=== PATIENT | female | born 1980 | race Caucasian/White ===

== ENCOUNTER 2017-04-17 05:32 | Day surgery (SDC) | payer OTHER ==
--- NOTE | 2017-04-14 13:37 | HISTORY & PHYSICAL EXAMINATION ---
DATE OF ADMISSION: CHIEF COMPLAINT: Vaginal bleeding, missed . HISTORY OF PRESENT ILLNESS: The patient is a 36-year-old white female, para 1-0-2-1 who presents with a missed . The patient had been seen in the office 2 weeks ago, had an ultrasound which revealed a missed and she was given Cytotec twice without any evidence of any passage of a fetus other than some spotting. She continues to have spotting and some mild cramps and alternatives to medical management were given. The patient is opting for a D&E at this time. PAST MEDICAL HISTORY: Positive for endometriosis in the past, HPV, hypertension in the past, kidney stone in the past, migraine in the past and dysthymic disorder. MEDICAL ALLERGIES: INCLUDE MORPHINE AND TRAMADOL. SOCIAL HISTORY: The patient is a current everyday smoker, approximately half pack per day. Denies alcohol or drugs. Currently sexually active with males. PAST SURGICAL HISTORY: Positive for laparoscopy and cystoscopy and cervical cone biopsy. MEDICATIONS: vitamins. PHYSICAL EXAMINATION: HEENT: Within normal limits. LUNGS: Clear to auscultation. COR: Regular rate and rhythm. ABDOMEN: Soft, nontender, gravid. EXTREMITIES: Mild edema. ASSESSMENT: Missed . PLAN: D&E on Thursday; type and screen is pending.
[2017-04-15 15:38] LABS: BASO % 0.2 %; BASO ABS # 0.02 K/uL (0-0.2); COMPLETE YES; EOS % 3.7 %; HEMATOCRIT 40.6 % (37-47); IG% 0.1 %; LYMPH % 24.2 %; LYMPH ABS # 2.11 K/uL (1.2-3.4); MEAN CELL VOLUME 92.5 fL (80-100); MEAN CORPUSCULAR HEMOGLOBIN 31.2 pg (25-34); MEAN CORPUSCULAR HGB CONC 33.7 g/dl (32-36); MEAN PLATELET VOLUME 9.3 fL (7.4-10.4); NEUT % 63.8 %; PLATELET COUNT 281 K/uL (130-400); RED BLOOD COUNT 4.39 M/uL (4.2-5.4); WHITE BLOOD COUNT 8.72 K/uL (4.8-10.8)
[2017-04-16 16:08] VITALS: BMI 31.0
[~2017-04-17] VITALS: Ht 157.5 cm; Wt 77.3 kg
[~2017-04-17 05:32] MED LIST: MULT-1027 PO
[2017-04-17 05:44] VITALS: BP 124/86; PULSE 71; TEMP 36.8; O2SAT 96; Ht 157.5 cm; Wt 77.3 kg
[2017-04-17 05:51] LABS: BASO % 0.3 %; BASO ABS # 0.03 K/uL (0-0.2); EOS % 1.9 %; HEMATOCRIT 41.8 % (37-47); IG% 0.1 %; LYMPH ABS # 4.84 K/uL (1.2-3.4); MEAN CELL VOLUME 93.1 fL (80-100); MEAN PLATELET VOLUME 8.9 fL (7.4-10.4); MONO % 6.6 %; NEUT % 50.1 %; PLATELET COUNT 290 K/uL (130-400); RED BLOOD COUNT 4.49 M/uL (4.2-5.4)
[2017-04-17] MEDS ORDERED: LACTATED RINGER'S 1000ML 1,000 ML IV SCH (06:00)
[2017-04-17] MEDS: LACTATED RINGER'S 1000ML 1,000 ML IV SCH ×2 (06:08→09:14)
[2017-04-17 06:09] LABS: COMPLETE YES; MEAN CORPUSCULAR HGB CONC 33.3 g/dl (32-36)
[2017-04-17] MEDS ORDERED: LIDOCAINE HCL 2% 2 ML VIAL (20MG/ML) ONE ×2 (06:21→06:22)
[2017-04-17] MEDS ORDERED: FENTANYL CITRATE INJ 50 MCG/1 ML 2 ML VIAL ONE (06:21)
[2017-04-17] MEDS ORDERED: MIDAZOLAM HCL 1 MG/ML 2ML VIAL ONE (06:21)
[2017-04-17] MEDS ORDERED: PROPOFOL IV EMULSION 10 MG/ML 20 ML VIAL IV ONE (06:22)
[2017-04-17] MEDS ORDERED: ATROPINE SULFATE 0.1 MG/ML 5ML SYR IV PRN (06:45)
[2017-04-17] MEDS ORDERED: ONDANSETRON INJ 2 MG/ML 2 ML VIAL IV PRN ×2 (06:45→08:00)
[2017-04-17] MEDS ORDERED: HYDROmorphone INJ 1 MG/ML SYR IV PRN (06:45)
[2017-04-17] MEDS ORDERED: PROMETHAZINE HCL INJ 12.5 MG in SODIUM CHLORIDE 0.9% 50ML 50 ML IV PRN (06:45)
[2017-04-17] MEDS ORDERED: EpHEDrine SULFATE INJ 50 MG/ML AMP IV PRN (06:45)
[2017-04-17] MEDS ORDERED: METHYLERGONOVINE MALEATE 0.2 MG/ML AMP ONE (06:51)
[2017-04-17] MEDS ORDERED: FERRIC SUBSULFATE 8 GM VIAL TOP SCH (07:00)
[2017-04-17] MEDS ORDERED: MISOPROSTOL 200 MCG TAB PO SCH (07:00)
--- NOTE | 2017-04-17 07:02 | History & Physical Bridge Note ---
H&P Re-Evaluation Bridge Note: I have examined the patient, reviewed the History & Physical and in the interval since the performance of the History & Physical I have noted the following changes of clinical significance: No changes noted
[2017-04-17] MEDS ORDERED: ONDANSETRON INJ 2 MG/ML 2 ML VIAL ONE (07:30)
[2017-04-17] MEDS ORDERED: DEXAMETHASONE SOD INJ 4 MG/ML VIAL ONE ×2 (07:30)
[2017-04-17] MEDS ORDERED: OXYTOCIN INJ 10 UNITS/ML VIAL ONE ×2 (07:38)
--- NOTE | 2017-04-17 07:50 | [facility] Post Operative Brief Note ---
Immediate Operative Summary Operative Date Apr 17, 2017. Pre-Operative Diagnosis Incomplete spontaneous Post-Operative Diagnosis Incomplete spontaneous Procedure(s) Performed EUA, Suction, Dilation and Curettage Surgeon Dr. Oneill Hotbed Lever Operator Surgeon(s) None Estimated Blood Loss 20 ml Findings AV 8 week size uterus BELT POLISHER adnexa Specimens Permanent: A. Products of Conception Anesthesia GETA Complication(s) None Disposition PCU
[2017-04-17] MEDS ORDERED: SODIUM CHLORIDE 0.9% 1000ML 1,000 ML IV SCH (07:55)
[2017-04-17] MEDS ORDERED: KETOROLAC TROMETHAMINE 30 MG/ML VIAL ONE (07:58)
[2017-04-17] MEDS ORDERED: KETOROLAC TROMETHAMINE 30 MG/ML VIAL IV STA (08:00)
[2017-04-17] MEDS ORDERED: IBUPROFEN 600 MG TAB PO PRN (08:00)
[2017-04-17] MEDS ORDERED: PROMETHAZINE HCL INJ 25 MG in SODIUM CHLORIDE 0.9% 50ML 50 ML IV PRN (08:00)
[2017-04-17] MEDS ORDERED: KETOROLAC TROMETHAMINE 30 MG/ML VIAL IV. PRN (08:00)
[2017-04-17] MEDS ORDERED: OXYCODONE/ACETAMINOPHEN 5-325 TAB PO PRN (08:00)
[2017-04-17] MEDS: FENTANYL CITRATE INJ 50 MCG/1 ML 2 ML VIAL IV PRN ×4 (08:03→08:26)
[2017-04-17] MEDS ORDERED: MEPERIDINE HCL 25 MG/ML CARP ONE (08:03)
[2017-04-17] MEDS ORDERED: MEPERIDINE HCL 25 MG/ML CARP IV PRN (08:15)
--- NOTE | 2017-04-17 08:16 | OPERATIVE REPORT ---
DATE OF OPERATION: 04/17/2017 PREOPERATIVE DIAGNOSIS: The patient is a 36-year-old 4, para 1-0-2-1 with incomplete spontaneous which has not responded to medical therapy and retained products of conception. POSTOPERATIVE DIAGNOSIS: Same. PROCEDURE: Examination under anesthesia, suction dilatation and curettage. SURGEON: Ilya Oneill MD TELEMARKETING SUPERVISOR: none ESTIMATED BLOOD LOSS: 20 mL. SPECIMENS: Products of conception. ANESTHESIA: LMA. COMPLICATIONS: None. FINDINGS: Examination under anesthesia revealed anteverted 8 weeks' size uterus, nonpalpable adnexa and stage 1 cystocele, uterine prolapse. DESCRIPTION OF PROCEDURE: The patient was taken to the operating room where anesthesia was given without difficulty. She was placed in dorsal lithotomy position and prepared and draped in usual sterile fashion. Urinary bladder was drained with a straight catheter, 100 mL of urine was obtained and examination under anesthesia was done with the above findings. Gloves were changed and a weighted speculum was placed in the patient's vagina and the bladder was retracted with Rodriguez valve and cervix was visualized, grasped with single tooth tenaculum. Cervical os was dilated with Garcia dilators. The uterus was sounded to be 8.5 cm and then #8 suction tip was introduced from the cervical os and the uterine cavity was suctioned while twisting it in a clockwise direction. Small pieces of cortez and white tissue suggesting products of conception was obtained and sent to pathology. Then suction was repeated and small amount of white tissue was coming from the tube and then with the next repeat there was no tissue coming, only a small amount of blood. Suction was ended. Then the uterine cavity was curetted with a small sharp curette until uterine cry sensation was felt in all quadrants. Those tissues were sent to pathology as well and then procedure was ended. The cervix was cleaned. There was minimal bleeding from the os. Single tooth tenaculum was removed. There was no bleeding from the tenaculum site. Bimanual exam was repeated. Uterus was firm and smaller. The 3 Cytotec tablets, each 200 mcg, were placed rectally. She tolerated the procedure well. Sponge, lap and instrument count was correct x2. She was given 2 grams of cefazolin before surgery. She was taken to recovery room in stable condition. No complications happened and I was present during whole procedure. I attest to the content of the Intraoperative Record and any orders documented therein. Any exceptions are noted below. MTDD
[2017-04-17] MEDS ORDERED: HydrALAZINE HCL 20 MG/ML VIAL ONE (08:23)
[2017-04-17] MEDS ORDERED: HydrALAZINE HCL 20 MG/ML VIAL IV. STA (08:24)
[2017-04-17 08:50] VITALS: BP 128/86; PULSE 66; TEMP 36.7; O2SAT 96
--- NOTE | 2017-04-17 08:50 | Anesthesiology Progress Note ---
Anesthesia Post Op Note Date & Time Apr 17, 2017 at 08:50 Vital Signs Pain Intensity: 4 Vital Signs Past 12 Hours Date Time Temp Pulse Resp B/P (MAP) Pulse Ox O2 Delivery O2 Flow Rate FiO2 04/17/17 08:45 65 19 130/92 95 Room Air 04/17/17 08:35 36.4 63 18 127/95 95 Room Air 04/17/17 08:25 65 21 166/110 100 Oxymask 6 04/17/17 08:15 73 30 175/133 100 Oxymask 10 04/17/17 08:05 89 31 181/111 97 Oxymask 10 04/17/17 08:01 156/117 04/17/17 07:59 36.2 98 21 100 Oxymask 10 04/17/17 05:44 36.8 71 16 124/86 (99) 96 Room Air Notes Mental Status: alert / awake / arousable, participated in evaluation Pt Amnestic to Procedure: Yes Nausea / Vomiting: adequately controlled Pain: adequately controlled Airway Patency, RR, SpO2: stable & adequate BP & HR: stable & adequate Hydration State: stable & adequate Anesthetic Complications: no major complications apparent
[2017-04-17] MEDS ORDERED: OXYC-57 PO (08:51)
--- NOTE | 2017-04-17 08:52 | Discharge Instructions ---
Discharge Instructions Date of Service Apr 17, 2017. Admission Reason for Admission: Missed Discharge Discharge Diagnosis / Problem: Suction, D&C Discharge Goals Goal(s): Routine recovery after surgery Activity Recommendations Activity Limitations: as noted below ACTIVITY RECOMMENDATIONS: * Avoid tampons, douching, hot tubs, pools, and intercourse until bleeding has stopped. * May shower as usual. * No strenuous activity for 24-48 hours. After 24-48 hours, you may do anything you feel like doing (driving and sports are okay). SPECIAL CARE INSTRUCTIONS: Special Diet: * Mild nausea may occur in the immediate post-operative period. * Take clear liquids such as tea, cola or bouillon until all nausea has subsided; you may then resume your normal diet. Special Care: * Light bleeding and vaginal spotting can last from a few days to 3-4 weeks. Call your doctor if bleeding becomes heavier than the heaviest part of your period. * Check your temperature twice a day for one week. If it goes above 100.4 degrees Fahrenheit (38.0 Celsius), notify your doctor. * Call your doctor's office for an appointment for 6 weeks after your surgery. FOLLOW-UP VISIT: Call your doctor's office for an appointment for 6 weeks after your surgery. . Current Hospital Diet Patient's current hospital diet: Discharge Diet Recommended Diet: Regular Diet Procedures Procedures Performed: EUA, Suction, Dilation and Curettage Pending Studies Studies pending at discharge: no Medical Emergencies . Who to Call and When: Medical Emergencies: If at any time you feel your situation is an emergency, please call 911 immediately. . Non-Emergent Contact Non-Emergency issues call your: Spacecraft Systems Engineer Call Non-Emergent contact if: temperature is above 100.5, your pain is not controlled, your pain is worsening, wound has increased drainage, wound has increased redness . . "Provider Documentation" section prepared by Ilya Oneill. . VTE Core Measure Inpt VTE Proph given/why not?: Treatment not indicated
[2017-04-17 09:20] VITALS: BP 124/83; PULSE 72; TEMP 36.7; O2SAT 96
[2017-04-17 09:50] VITALS: BP 136/92; PULSE 77; TEMP 36.7; O2SAT 96
== END 2017-04-17 10:10 | disposition home or self-care (01) ==
LOC: C.ACU 05:32
PROVIDERS: ATTEND Obstetrics & Gynecology
DX: O03.4 Incomplete spontaneous abortion without complication (principal); F17.200 Nicotine dependence, unspecified, uncomplicated

== ENCOUNTER 2017-08-20 16:14 | Emergency (ER) | payer OTHER ==
[~2017-08-20] VITALS: Ht 157.5 cm; Wt 66.1 kg
[~2017-08-20 16:14] MED LIST changes: +OXYC-57 PO
[2017-08-20 16:35] VITALS: TEMP 36.6; Ht 157.5 cm; Wt 66.1 kg
[2017-08-20] MEDS ORDERED: ONDANSETRON INJ 2 MG/ML 2 ML VIAL IV STA (19:19)
[2017-08-20] MEDS ORDERED: SODIUM CHLORIDE 0.9% 1000ML 1,000 ML IV STA (19:19)
[2017-08-20] MEDS ORDERED: KETOROLAC TROMETHAMINE 30 MG/ML VIAL IV STA (19:19)
[2017-08-20] MEDS ORDERED: QUET5TAB PO (20:31)
[2017-08-20] MEDS ORDERED: PARO1TAB27 PO (20:31)
[2017-08-20] MEDS ORDERED: CYCL10TA7 PO (20:31)
[2017-08-20] MEDS ORDERED: TAMS0.4C38 PO (20:31)
[2017-08-20] MEDS ORDERED: LISI-461 PO (20:31)
[2017-08-20] MEDS ORDERED: SULF800T23 PO (20:31)
[2017-08-20 20:38] LABS: BASO % 0.2 %; BASO ABS # 0.02 K/uL (0-0.2); EOS % 0.7 %; EOS ABS # 0.06 K/uL (0-0.5); HEMATOCRIT 45.6 % (37-47); HEMOGLOBIN 16.6 g/dL (12.0-16.0); IG# 0.01 K/uL (0.00-0.02); LYMPH % 46.9 %; MEAN CELL VOLUME 85.6 fL (80-100); MEAN CORPUSCULAR HEMOGLOBIN 31.1 pg (25-34); MEAN CORPUSCULAR HGB CONC 36.4 g/dl (32-36); MEAN PLATELET VOLUME 8.5 fL (7.4-10.4); MONO % 6.5 %; MONO ABS # 0.54 K/uL (0.11-0.59); NEUT % 45.6 %; NEUT ABS # 3.79 K/uL (1.4-6.5); PLATELET COUNT 286 K/uL (130-400); RED CELL DISTRIBUTION WIDTH CV 12.9 % (11.5-14.5); RED CELL DISTRIBUTION WIDTH SD 40.6 fL (36.4-46.3); WHITE BLOOD COUNT 8.32 K/uL (4.8-10.8)
[2017-08-20 20:56] LABS: ALBUMIN 4.4 gm/dl (3.4-5.0); CALCIUM 10.2 mg/dl (8.5-10.1); CREATININE 1.2 mg/dl (0.60-1.20); POTASSIUM 3.7 mmol/L (3.5-5.1)
[2017-08-20 20:59] LABS: TOTAL PROTEIN 8.5 gm/dl (6.4-8.2)
--- NOTE | 2017-08-20 21:06 | DIAGNOSTIC IMAGING REPORT ---
ABDOMEN AND PELVIS CT WITHOUT CONTRAST CT DOSE: 488.03 mGy.cm HISTORY: Hematuria. flank pain TECHNIQUE: Multiaxial CT images of the abdomen and pelvis were performed without the use of intravenous and oral contrast according to the standard department stone protocol. A dose lowering technique was utilized adhering to the principles of ALARA. COMPARISON STUDY: Abdomen and pelvis CT 09/16/2014. FINDINGS: The lung bases are clear. Mild distal bronchiectasis within the lingula, unchanged. No pneumoperitoneum. No pneumatosis. No fractures within the visualized osseous structures. The unenhanced liver, gallbladder, pancreas, spleen, and adrenal glands are unremarkable. There is a left circumaortic renal vein. No retroperitoneal lymphadenopathy. The bladder, uterus, bilateral adnexa are unremarkable. No pelvic free fluid. Suboptimal evaluation for pathology due to the lack of intravenous and oral contrast. However, there is no definite bowel wall thickening or obstruction. Normal appendix. There are 2 punctate stones within the left kidney. No right renal calculi. No ureteral calculi. No hydronephrosis. IMPRESSION: 1. Left-sided nephrolithiasis. No ureteral stones. No hydronephrosis. 2. No bowel wall thickening or obstruction. 3. Normal appendix. Electronically signed by: Connor Arboleda M.D. 08/20/2017 9:05 PM Dictated Date/Time: 08/20/2017 8:57 PM
--- NOTE | 2017-08-20 23:04 | EMERGENCY ROOM VISIT NOTE ---
History Report prepared by Racheal: Thanh Munroe Under the Supervision of: Dr. Martínez Mahajan D.O. First contact with patient: 19:15 Chief Complaint: KIDNEY STONE Stated Complaint: KIDNEY STONES, HEMATURIA, DEHYDRATION History of Present Illness The patient is a 37 year old female who presents to the Emergency Room with complaints of constant bilateral abdominal pain beginning 2 days ago. The patient states that she had a CT done two days ago, which revealed multiple kidney stones on her left side, with the largest being 2mm. She notes that she admitted herself to a drug rehab facility a week ago, and tried to pass her kidney stones without using any narcotics. She reports that she was just medically discharged from the rehab facility. The patient states that she has been bedridden for the last two days, and that she now has pain on both sides of her abdomen. She also complains of hematuria and nausea, but denies any vomiting. She notes that she has a history of hypertension and takes lisinopril. Source of History: patient Onset: 2 days ago Position: abdomen (bilateral) Timing: constant Associated Symptoms: + nausea, + urinary symptoms (hematuria), No vomiting Review of Systems See HPI for pertinent positives & negatives. A total of 10 systems reviewed and were otherwise negative. Past Medical & Surgical Medical Problems: (1) Acute hepatitis (2) Dysthymic disorder (3) Endometriosis (4) Hiatal hernia (5) History of calculus of kidney (6) Hypertension (7) PELV PERIT ENDOMETRIOSIS (8) Ureteral stone Surgical Problems: (1) History of ureter stent (2) LAP EXCISION OF LYSIS - ENDOMETRIOSIS Family History Diabetes mellitus Heart disease Social History Smoking Status: Current Every Day Smoker Alcohol Use: none Drug Use: heroin Marital Status: single Housing Status: lives with significant other Occupation Status: unemployed Current/Historical Medications Scheduled Lisinopril (Lisinopril), 10 MG PO DAILY Paroxetine (Paxil), 20 MG PO DAILY Quetiapine Fumarate (Seroquel), 50 MG PO HS Sulfa/Trimethoprim (Bactrim Ds 800MG/160MG), 1 TAB PO BID Tamsulosin Hcl (Flomax), 0.4 MG PO DAILY Scheduled PRN Cyclobenzaprine HCl (Cyclobenzaprine HCl), 10 MG PO TID PRN for Muscle Spasms Allergies Coded Allergies: Morphine (Unverified Allergy, Unknown, felt like throat was closing, 2/15/ 18) Tramadol (Verified Adverse Reaction, Unknown, dizziness, confusion, limb weakness, 08/20/17) Physical Exam Vital Signs Date Time Temp Pulse Resp B/P (MAP) Pulse Ox O2 Delivery O2 Flow Rate FiO2 08/20/17 21:16 85 16 135/86 98 Room Air 08/20/17 19:28 115 20 116/76 98 Room Air 08/20/17 16:35 36.6 128 20 124/84 98 Room Air Physical Exam CONSTITUTIONAL/VITAL SIGNS: Reviewed / noted above. GENERAL: Non-toxic in appearance. INTEGUMENTARY: Warm, dry, and [place]. HEAD: Normocephalic. EYES: without scleral icterus or trauma. ENT/OROPHARYNX: clear and moist. LYMPHADENOPATHY/NECK: Is supple without lymphadenopathy or meningismus. RESPIRATORY: Lungs clear and equal. CARDIOVASCULAR: Regular rate and rhythm. GI/ABDOMEN: Soft and nontender. No organomegaly or pulsatile mass. No rebound or guarding. Normal bowel sounds. EXTREMITIES: Warm and well perfused. BACK: Right CVA tenderness. NEUROLOGICAL: Intact without focal deficits. PSYCHIATRIC: normal affect. MUSCULOSKELETAL: Normally developed with good muscle tone. Medical Decision & Procedures ER Provider Diagnostic Interpretation: Radiology results as stated below per my review and radiologist interpretation: ABDOMEN AND PELVIS CT WITHOUT CONTRAST FINDINGS: The lung bases are clear. Mild distal bronchiectasis within the lingula, unchanged. No pneumoperitoneum. No pneumatosis. No fractures within the visualized osseous structures. The unenhanced liver, gallbladder, pancreas, spleen, and adrenal glands are unremarkable. There is a left circumaortic renal vein. No retroperitoneal lymphadenopathy. The bladder, uterus, bilateral adnexa are unremarkable. No pelvic free fluid. Suboptimal evaluation for pathology due to the lack of intravenous and oral contrast. However, there is no definite bowel wall thickening or obstruction. Normal appendix. There are 2 punctate stones within the left kidney. No right renal calculi. No ureteral calculi. No hydronephrosis. IMPRESSION: 1. Left-sided nephrolithiasis. No ureteral stones. No hydronephrosis. 2. No bowel wall thickening or obstruction. 3. Normal appendix. Electronically signed by: Connor Arboleda M.D. 08/20/2017 9:05 PM Laboratory Results 08/20/17 20:15 Red Blood Count 5.33, Mean Corpuscular Volume 85.6, Mean Corpuscular Hemoglobin 31.1, Mean Corpuscular Hemoglobin Concent 36.4, Mean Platelet Volume 8.5, Neutrophils (%) (Auto) 45.6, Lymphocytes (%) (Auto) 46.9, Monocytes (%) (Auto) 6.5, Eosinophils (%) (Auto) 0.7, Basophils (%) (Auto) 0.2, Neutrophils # (Auto) 3.79, Lymphocytes # (Auto) 3.90, Monocytes # (Auto) 0.54, Eosinophils # (Auto) 0.06, Basophils # (Auto) 0.02 08/20/17 20:15 Test 08/20/17 20:15 08/20/17 21:35 White Blood Count 8.32 K/uL (4.8-10.8) Red Blood Count 5.33 M/uL (4.2-5.4) Hemoglobin 16.6 g/dL (12.0-16.0) Hematocrit 45.6 % (37-47) Mean Corpuscular Volume 85.6 fL (80-100) Mean Corpuscular Hemoglobin 31.1 pg (25-34) Mean Corpuscular Hemoglobin Concent 36.4 g/dl (32-36) Platelet Count 286 K/uL (130-400) Mean Platelet Volume 8.5 fL (7.4-10.4) Neutrophils (%) (Auto) 45.6 % Lymphocytes (%) (Auto) 46.9 % Monocytes (%) (Auto) 6.5 % Eosinophils (%) (Auto) 0.7 % Basophils (%) (Auto) 0.2 % Neutrophils # (Auto) 3.79 K/uL (1.4-6.5) Lymphocytes # (Auto) 3.90 K/uL (1.2-3.4) Monocytes # (Auto) 0.54 K/uL (0.11-0.59) Eosinophils # (Auto) 0.06 K/uL (0-0.5) Basophils # (Auto) 0.02 K/uL (0-0.2) RDW Standard Deviation 40.6 fL (36.4-46.3) RDW Coefficient of Variation 12.9 % (11.5-14.5) Immature Granulocyte % (Auto) 0.1 % Immature Granulocyte # (Auto) 0.01 K/uL (0.00-0.02) Anion Gap 9.0 mmol/L (3-11) Est Creatinine Clear Calc Drug Dose 57.8 ml/min Estimated GFR () 67.3 Estimated GFR (Non- 58.1 BUN/Creatinine Ratio 13.6 (10-20) Calcium Level 10.2 mg/dl (8.5-10.1) Total Bilirubin 0.5 mg/dl (0.2-1) Direct Bilirubin 0.1 mg/dl (0-0.2) Aspartate Amino Transf (AST/SGOT) 10 U/L (15-37) Alanine Aminotransferase (ALT/SGPT) 20 U/L (12-78) Alkaline Phosphatase 86 U/L (45-117) Total Protein 8.5 gm/dl (6.4-8.2) Albumin 4.4 gm/dl (3.4-5.0) Lipase 247 U/L (73-393) Urine Color YELLOW Urine Appearance CLEAR (CLEAR) Urine pH 7.0 (4.5-7.5) Urine Specific [place] 1.019 (1.000-1.030) Urine Protein NEG (NEG) Urine Glucose (UA) NEG (NEG) Urine Ketones NEG (NEG) Urine Occult Blood 3+ (NEG) Urine Nitrite NEG (NEG) Urine Bilirubin NEG (NEG) Urine Urobilinogen NEG (NEG) Urine Leukocyte Esterase SMALL (NEG) Urine WBC (Auto) 10-30 /hpf (0-5) Urine RBC (Auto) >30 /hpf (0-4) Urine Hyaline Casts (Auto) 1-5 /lpf (0-5) Urine Epithelial Cells (Auto) >30 /lpf (0-5) Urine Bacteria (Auto) NEG (NEG) Urine Test NEG (NEG) Laboratory results as stated above per my review. Medications Administered Medications (Trade) Dose Ordered Sig/Maximino Route Start Time Stop Time Status Last Admin Dose Admin Sodium Chloride 1,000 ml @ 999 mls/hr Q1H1M STAT IV 08/20/17 19:19 08/20/17 20:19 DC 08/20/17 20:26 999 MLS/HR Ondansetron HCl (Zofran Inj) 4 mg NOW STAT IV 08/20/17 19:19 08/20/17 19:21 DC 08/20/17 20:27 4 MG Ketorolac Tromethamine (Toradol Inj) 30 mg NOW STAT IV 08/20/17 19:19 08/20/17 19:21 DC 08/20/17 20:27 30 MG ED Course 1915: Previous medical records were reviewed. The patient was evaluated in room B5. A complete history and physical examination was performed. 1918: Toradol Inj 30mg IV, Zofran Inj 4mg IV, Sodium Chloride 1000 ml @ 999 mls/ hr IV 2305: On reevaluation, the patient is stable. I discussed the results and findings with the patient. She verbalized agreement of the treatment plan. The patient was discharged home. Medical Decision Differential considered: pancreatitis, hepatitis, or acute cholecystitis, AAA, UTI, pyelonephritis, kidney stones, appendicitis, diverticulitis, shingles, bowel obstruction mesenteric ischemia, intussusception,hernia, ovarian torsion, ruptured ovarian cyst,ectopic , . This is a 37-year-old female who presents to the ED with a chief complaint of bilateral flank pain. The patient was stating that it feels like a kidney stone. She states that she was just in the emergency department at [facility] on . She was told that she had a stone. The patient was prescribed Flomax. She denies any fevers. She just was released from [facility] for heroin abuse. The patient has some right-sided CVA tenderness on exam. No abdominal tenderness. A CT scan of the abdomen pelvis reveals some left-sided nephrolithiasis but no ureteral stones. There is no hydronephrosis. CBC and complete metabolic panel normal, test was negative and a urine did not show infection. The patient was initially tachycardic when she arrived. Her heart rate improved during her stay. She is felt to be stable for discharge. She was treated with IV Toradol as well as IV Zofran and IV fluids. Because of her history of narcotic addiction, I do not feel additional pain medication with narcotics is beneficial. Medication Reconcilliation Current Medication List: was personally reviewed by me Blood Pressure Screening Patient's blood pressure: Normal blood pressure Blood pressure disposition: Elevated BP felt to be situational Impression Primary Impression: Right flank pain Scribe Attestation The scribe's documentation has been prepared under my direction and personally reviewed by me in its entirety. I confirm that the note above accurately reflects all work, treatment, procedures, and medical decision making performed by me. Departure Information Dispostion Home / Self-Care Referrals Dandy Hood M.D.(MELISA) (PCP) Forms HOME CARE DOCUMENTATION FORM, IMPORTANT VISIT INFORMATION Patient Instructions My [facility] Additional Instructions Follow-up with your doctor for further care and evaluation in 1-2 days. Return to the emergency department for worsening or new symptoms or any concerns. You have been examined and treated today on an emergency basis only. This is not a substitute for, or an effort to provide, complete comprehensive medical care. It is impossible to recognize and treat all injuries or illnesses in a single emergency department visit. It is therefore important that you follow up closely with your doctor. Call as soon as possible for an appointment.
[2017-08-20 23:26] VITALS: BP 127/84; PULSE 81; O2SAT 99
== END 2017-08-20 23:26 | disposition home or self-care (01) ==
LOC: C.EDB 16:15
DX: R10.9 Unspecified abdominal pain (principal); I10 Essential (primary) hypertension; Z87.442 Personal history of urinary calculi; N80.9 Endometriosis, unspecified; B17.9 Acute viral hepatitis, unspecified; F34.1 Dysthymic disorder; Z83.3 Family history of diabetes mellitus; Z82.49 Family history of ischemic heart disease and other diseases of the circulatory system; F17.210 Nicotine dependence, cigarettes, uncomplicated; Z79.2 Long term (current) use of antibiotics; Z79.899 Other long term (current) drug therapy; Z88.5 Allergy status to narcotic agent

== ENCOUNTER 2017-08-24 10:08 | Observation (INO) | payer OTHER ==
[~2017-08-24] VITALS: Ht 157.5 cm; Wt 70.4 kg
[~2017-08-24 10:08] MED LIST changes: +CYCL10TA7 PO; +LISI-461 PO; -MULT-1027 PO; -OXYC-57 PO; +PARO1TAB27 PO; +QUET5TAB PO; +SULF800T23 PO; +TAMS0.4C38 PO
[2017-08-24] MEDS ORDERED: ONDANSETRON INJ 2 MG/ML 2 ML VIAL IV STA (10:17)
[2017-08-24] MEDS ORDERED: LORAZEPAM 1 MG TAB SL STA (10:17)
[2017-08-24] MEDS ORDERED: SODIUM CHLORIDE 0.9% 1000ML 2,000 ML IV STA (10:17)
[2017-08-24 10:27] LABS: BASO % 0.2 %; BASO ABS # 0.02 K/uL (0-0.2); EOS % 0.5 %; EOS ABS # 0.06 K/uL (0-0.5); HEMATOCRIT 51.4 % (37-47); HEMOGLOBIN 18.2 g/dL (12.0-16.0); IG# 0.04 K/uL (0.00-0.02); LYMPH % 35.5 %; LYMPH ABS # 4.46 K/uL (1.2-3.4); MEAN CELL VOLUME 88.9 fL (80-100); MEAN CORPUSCULAR HEMOGLOBIN 31.5 pg (25-34); MEAN CORPUSCULAR HGB CONC 35.4 g/dl (32-36); MEAN PLATELET VOLUME 8.7 fL (7.4-10.4); MONO % 5.7 %; MONO ABS # 0.71 K/uL (0.11-0.59); NEUT % 57.8 %; NEUT ABS # 7.27 K/uL (1.4-6.5); PLATELET COUNT 428 K/uL (130-400); RED CELL DISTRIBUTION WIDTH CV 12.9 % (11.5-14.5); RED CELL DISTRIBUTION WIDTH SD 41.8 fL (36.4-46.3); WHITE BLOOD COUNT 12.56 K/uL (4.8-10.8)
--- NOTE | 2017-08-24 10:35 | DIAGNOSTIC IMAGING REPORT ---
SINGLE VIEW CHEST CLINICAL HISTORY: Dizziness. Anxiety. FINDINGS: An AP, portable, upright chest radiograph is obtained. No prior studies are available for comparison at the time of dictation. The examination is degraded by portable technique and patient rotation. The cardiomediastinal silhouette is unremarkable. The lungs and pleural spaces are clear. No pneumothorax is seen. The bony thorax is grossly intact. IMPRESSION: No active disease in the chest. Electronically signed by: Henri Denis M.D. 08/24/2017 10:34 AM Dictated Date/Time: 08/24/2017 10:33 AM
[2017-08-24 10:45] LABS: ALBUMIN 4.8 gm/dl (3.4-5.0); BLOOD UREA NITROGEN 19 mg/dl (7-18); CALCIUM 10.8 mg/dl (8.5-10.1); CARBON DIOXIDE 20 mmol/L (21-32); CREATININE 1.26 mg/dl (0.60-1.20); GLUCOSE 120 mg/dl (70-99); LIPASE 364 U/L (73-393); SODIUM 140 mmol/L (136-145)
[2017-08-24 10:49] LABS: ALKALINE PHOSPHATASE 101 U/L (45-117); ALT/SGPT 28 U/L (12-78); AST/SGOT 15 U/L (15-37); TOTAL PROTEIN 9.3 gm/dl (6.4-8.2)
[2017-08-24] MEDS ORDERED: LORAZEPAM 2 MG/ML 1 ML VIAL IV STA (12:29)
[2017-08-24] MEDS ORDERED: CEFTRIAXONE SOD INJ 1 GM ADDVIAL IV STA (14:11)
--- NOTE | 2017-08-24 14:55 | EMERGENCY ROOM VISIT NOTE ---
History Report prepared by Racheal: Jose Turpin Under the Supervision of: Dr. Cale Overton D.O. First contact with patient: 10:09 Chief Complaint: ILLNESS Stated Complaint: ILLNESS/ANXIETY History of Present Illness The patient is a 37 year old female who presents to the Emergency Room with complaints of worsening dizziness/lightheadedness that began earlier this morning. She has a past medical history of hypertension, kidney stones, and heroin abuse. She was recently discharged from a 20 day stay in a rehabilitation facility. When the patient woke up this morning she had an episode of diarrhea. She then began to feel mildly nauseated and dizzy. She tried to take a bath to make herself feel better, but she then began to feel dizzy and shaky. She then progressed into some mild shortness of breath with tingling to her hands and feet bilaterally. She is current experience cold sweats and a slight cough as well. Pt denies headache, change in vision, fevers , chest pain, vomiting, abdominal pain, diarrhea, pain with urination, and melena. Source of History: patient Onset: earlier this morning Position: other (Global) Symptom Intensity: moderate Quality: other (Dizziness/Lightheadedness) Timing: constant Associated Symptoms: + chills, + diaphoresis, + cough, + SOB, + nausea, No fevers, No chest pain, No abdominal pain, No melena, No diarrhea, No urinary symptoms Review of Systems See HPI for pertinent positives & negatives. A total of 10 systems reviewed and were otherwise negative. Past Medical & Surgical Medical Problems: (1) Acute hepatitis (2) Dysthymic disorder (3) Endometriosis (4) Hiatal hernia (5) History of calculus of kidney (6) Hypertension (7) PELV PERIT ENDOMETRIOSIS (8) Ureteral stone Surgical Problems: (1) History of ureter stent (2) LAP EXCISION OF LYSIS - ENDOMETRIOSIS Family History Diabetes mellitus Heart disease Social History Smoking Status: Current Every Day Smoker Alcohol Use: none Drug Use: heroin Marital Status: single Housing Status: lives with significant other Occupation Status: unemployed Current/Historical Medications Scheduled Lisinopril (Lisinopril), 10 MG PO DAILY Paroxetine (Paxil), 20 MG PO DAILY Quetiapine Fumarate (Seroquel), 50 MG PO HS Sulfa/Trimethoprim (Bactrim Ds 800MG/160MG), 1 TAB PO BID Scheduled PRN Cyclobenzaprine HCl (Cyclobenzaprine HCl), 10 MG PO TID PRN for Muscle Spasms Allergies Coded Allergies: Morphine (Unverified Allergy, Unknown, felt like throat was closing, ) Tramadol (Verified Adverse Reaction, Unknown, dizziness, confusion, limb weakness, 08/24/17) Physical Exam Vital Signs Date Time Temp Pulse Resp B/P (MAP) Pulse Ox O2 Delivery O2 Flow Rate FiO2 08/24/17 15:09 126 16 147/101 96 Room Air 08/24/17 13:27 119 08/24/17 13:27 124 20 180/129 08/24/17 11:32 117 20 166/111 100 Room Air 08/24/17 10:45 134 24 157/143 99 08/24/17 10:16 131 08/24/17 10:16 36.3 131 20 149/110 100 Room Air Physical Exam GENERAL: Sitting up in bed, alert, anxious and diaphoretic appearing, tachypneic , well nourished, mild distress, non-toxic EYE EXAM: normal conjunctiva. PERRL and EOM's intact. OROPHARYNX: no exudate, no erythema, lips, buccal mucosa, and tongue normal and mucous membranes are moist NECK: supple, no nuchal rigidity, no adenopathy, non-tender LUNGS: Clear to auscultation. Normal chest wall mechanics HEART: Tachycardic rate, regular rhythm, no murmurs, S1 normal and S2 normal ABDOMEN: abdomen soft, non-tender, normo-active bowel sounds, no masses, no rebound or guarding. BACK: Back is symmetrical on inspection and there is no deformity, no midline tenderness, no CVA tenderness. SKIN: no rashes and no bruising UPPER EXTREMITIES: upper extremities are grossly normal. LOWER EXTREMITIES: No pitting edema. NEURO EXAM: Normal sensorium, cranial nerves II-XII intact, normal speech, no weakness of arms, no weakness of legs. No drift. Finger to nose intact. Gross sensation intact. Medical Decision & Procedures ER Provider Diagnostic Interpretation: Radiology results as stated below per my review and the radiologist's interpretation: SINGLE VIEW CHEST CLINICAL HISTORY: Dizziness. Anxiety. FINDINGS: An AP, portable, upright chest radiograph is obtained. No prior studies are available for comparison at the time of dictation. The examination is degraded by portable technique and patient rotation. The cardiomediastinal silhouette is unremarkable. The lungs and pleural spaces are clear. No pneumothorax is seen. The bony thorax is grossly intact. IMPRESSION: No active disease in the chest. Electronically signed by: Henri Denis M.D. 08/24/2017 10:34 AM Dictated Date/Time: 08/24/2017 10:33 AM ABDOMEN AND PELVIS CT WITHOUT CONTRAST CT DOSE: 402.33 mGycm HISTORY: Nausea. Diarrhea. Recently passed stone. TECHNIQUE: Multiaxial CT images of the abdomen and pelvis were performed without contrast. A dose lowering technique was utilized adhering to the principles of ALARA. COMPARISON STUDY: Abdomen and pelvis CT 08/20/2017. FINDINGS: Mild distal bronchiectasis within the lingula, unchanged. The lung bases are clear. No pneumoperitoneum. No pneumatosis. No fractures within the visualized osseous structures. The unenhanced liver, spleen, adrenal glands, pancreas, and gallbladder are unremarkable. No retroperitoneal lymphadenopathy. There is a left circumaortic renal vein. There is 2 punctate stones seen within the left kidney. No right renal calculi. No hydronephrosis. The ureters are normal in course and caliber. The bladder is unremarkable. Suboptimal evaluation for bowel pathology due to the lack of intravenous and oral contrast. However, there is no definite bowel wall thickening or obstruction. Normal appendix. The uterus and ovaries are unremarkable. IMPRESSION: 1. Stable left-sided nephrolithiasis. No ureteral stones. No hydronephrosis. 2. No definite bowel wall thickening or obstruction. 3. Normal appendix. Electronically signed by: Connor Arboleda M.D. 08/24/2017 3:02 PM Dictated Date/Time: 08/24/2017 2:58 PM Laboratory Results 08/24/17 09:42 Red Blood Count 5.78, Mean Corpuscular Volume 88.9, Mean Corpuscular Hemoglobin 31.5, Mean Corpuscular Hemoglobin Concent 35.4, Mean Platelet Volume 8.7, Neutrophils (%) (Auto) 57.8, Lymphocytes (%) (Auto) 35.5, Monocytes (%) (Auto) 5.7, Eosinophils (%) (Auto) 0.5, Basophils (%) (Auto) 0.2, Neutrophils # (Auto) 7.27, Lymphocytes # (Auto) 4.46, Monocytes # (Auto) 0.71, Eosinophils # (Auto) 0.06, Basophils # (Auto) 0.02 08/24/17 09:42 Test 08/24/17 09:40 08/24/17 09:42 08/24/17 12:35 08/24/17 14:44 D-Dimer 490 ug/L FEU (0-500) White Blood Count 12.56 K/uL (4.8-10.8) Red Blood Count 5.78 M/uL (4.2-5.4) Hemoglobin 18.2 g/dL (12.0-16.0) Hematocrit 51.4 % (37-47) Mean Corpuscular Volume 88.9 fL (80-100) Mean Corpuscular Hemoglobin 31.5 pg (25-34) Mean Corpuscular Hemoglobin Concent 35.4 g/dl (32-36) Platelet Count 428 K/uL (130-400) Mean Platelet Volume 8.7 fL (7.4-10.4) Neutrophils (%) (Auto) 57.8 % Lymphocytes (%) (Auto) 35.5 % Monocytes (%) (Auto) 5.7 % Eosinophils (%) (Auto) 0.5 % Basophils (%) (Auto) 0.2 % Neutrophils # (Auto) 7.27 K/uL (1.4-6.5) Lymphocytes # (Auto) 4.46 K/uL (1.2-3.4) Monocytes # (Auto) 0.71 K/uL (0.11-0.59) Eosinophils # (Auto) 0.06 K/uL (0-0.5) Basophils # (Auto) 0.02 K/uL (0-0.2) RDW Standard Deviation 41.8 fL (36.4-46.3) RDW Coefficient of Variation 12.9 % (11.5-14.5) Immature Granulocyte % (Auto) 0.3 % Immature Granulocyte # (Auto) 0.04 K/uL (0.00-0.02) Anion Gap 18.0 mmol/L (3-11) Est Creatinine Clear Calc Drug Dose 55.0 ml/min Estimated GFR () 63.5 Estimated GFR (Non- 54.8 BUN/Creatinine Ratio 15.0 (10-20) Calcium Level 10.8 mg/dl (8.5-10.1) Total Bilirubin 0.5 mg/dl (0.2-1) Direct Bilirubin < 0.1 mg/dl (0-0.2) Aspartate Amino Transf (AST/SGOT) 15 U/L (15-37) Alanine Aminotransferase (ALT/SGPT) 28 U/L (12-78) Alkaline Phosphatase 101 U/L (45-117) Troponin I < 0.015 ng/ml (0-0.045) Total Protein 9.3 gm/dl (6.4-8.2) Albumin 4.8 gm/dl (3.4-5.0) Lipase 364 U/L (73-393) Thyroid Stimulating Hormone (TSH) 1.450 uIu/ml (0.300-4.500) Urine Color YELLOW Urine Appearance CLOUDY (CLEAR) Urine pH 7.5 (4.5-7.5) Urine Specific [place] 1.024 (1.000-1.030) Urine Protein NEG (NEG) Urine Glucose (UA) NEG (NEG) Urine Ketones 1+ (NEG) Urine Occult Blood NEG (NEG) Urine Nitrite NEG (NEG) Urine Bilirubin NEG (NEG) Urine Urobilinogen NEG (NEG) Urine Leukocyte Esterase MODERATE (NEG) Urine WBC (Auto) >30 /hpf (0-5) Urine RBC (Auto) 0-4 /hpf (0-4) Urine Hyaline Casts (Auto) 10-30 /lpf (0-5) Urine Epithelial Cells (Auto) >30 /lpf (0-5) Urine Bacteria (Auto) NEG (NEG) Urine Renal Epithelial Cells /lpf (0-5) Urine Crystals CALCIUM OXALATE (NONE Urine Mucus PRESENT (NONE PRSENT) Urine Test NEG (NEG) Test 08/24/17 14:50 Laboratory results per my review. Medications Administered Medications (Trade) Dose Ordered Sig/Maximino Route Start Time Stop Time Status Last Admin Dose Admin Sodium Chloride 2,000 ml @ 999 mls/hr Q2H1M STAT IV 08/24/17 10:17 08/24/17 12:17 DC 08/24/17 10:17 999 MLS/HR Lorazepam (Ativan Tab) 1 mg NOW STAT SL 08/24/17 10:17 08/24/17 10:18 DC 08/24/17 10:23 1 MG Ondansetron HCl (Zofran Inj) 4 mg NOW STAT IV 08/24/17 10:17 08/24/17 10:18 DC 08/24/17 10:23 4 MG Lorazepam (Ativan Inj) 1 mg NOW STAT IV 08/24/17 12:29 08/24/17 12:30 DC 08/24/17 12:35 1 MG ECG Per My Interpretation Indication: tachycardia Rate (beats per minute): 127 Rhythm: sinus tachycardia Findings: nonspecific-ST abn (diffuse), other (Normal axis) ED Course ED COURSE: Vital signs were reviewed and showed tachycardia and situational hypertension The patients medical record was reviewed The above diagnostic studies were performed and reviewed. ED treatments and interventions as stated above. 1009: The patient was evaluated in room B10. A complete history and physical examination was performed. 1017: Ordered Zofran Inj 4 mg IV, Ativan Tab 1 mg SL, Sodium Chloride 2000 ml @ 999 mls/hr IV 1154: Upon reevaluation, the patient's heart rate is trending downward. She did however get mildly anxious when her family arrived. 1220: The patient is now sitting up in bed shaking all her extremities, stating that she is anxious. She will be giving us a urine sample. 1229: Ordered Ativan Inj 1 mg IV 1410: The patient had an episode of vomiting and would like something for nausea. 1411: Ordered Rocephin Inj 1 gm IV 1442: Upon reevaluation, the patient is resting.I discussed my findings with the patient and she understands and agrees with the treatment plan. Based on the patients age, coexisting illnesses, exam and lab findings the decision to treat as an inpatient was made. The patient remained stable while under my care. The patient will be evaluated by Dr. Rinku Munoz, for further management. Medical Decision Differential diagnosis includes etiologies such as benign positional vertigo, dehydration, hypovolemia, anemia, tumor, infection, hypoglycemia, electrolyte abnormalities, cardiac sources, intracerebral event, toxicologic, neurologic, as well as others were entertained. Patient is a 37-year-old female who presented to the ER brought in by EMS for feeling lightheaded, dizzy associated with palpitations. She has carpopedal spasms just prior to presentation. She was persistently tachycardic in the 130s -120s following 2 L of normal saline. TSH normal. Troponin negative. D-dimer negative. CBC shows a mild listhesis of 12,000. BMP with a CO2 of 20 and a gap of 18. Bilirubin along with LFTs were negative. Repeat EKG showed a sinus tach with nonspecific ST wave changes. UA shows >30 epithelial cells along with white cells and esterase. She does have mild dysuria. I do not believe this consistent with sepsis secondary to UTI but cannot be certain. To cover her with Rocephin. She was persistently hypertensive. I do question withdrawal although metabolic etiologies are also possible. Tox was at home. Discussed case with internal medicine. Patient will be evaluated for further workup with her persistent tachycardia. CT of the abdomen and pelvis was unremarkable. Medication Reconcilliation Current Medication List: was personally reviewed by me Blood Pressure Screening Patient's blood pressure: Elevated blood pressure Blood pressure disposition: Elevated BP felt to be situational Consults Time Called: 1440 Consulting Physician: Dr. Rinku Munoz Hospitalist Returned Call: [phone] I reviewed the patient's case with him. He will evaluate the patient for further management. Impression Primary Impression: Tachycardia Additional Impressions: HTN (hypertension) Dizziness Scribe Attestation The scribe's documentation has been prepared under my direction and personally reviewed by me in its entirety. I confirm that the note above accurately reflects all work, treatment, procedures, and medical decision making performed by me. Departure Information Dispostion Being Evaluated By Hospitalist Referrals Dandy Hood M.D. ([facility]) (PCP) Patient Instructions My [facility] Problem Qualifiers Additional Impressions: HTN (hypertension) Hypertension type: unspecified Qualified Codes: I10 - Essential (primary) hypertension
--- NOTE | 2017-08-24 15:03 | DIAGNOSTIC IMAGING REPORT ---
ABDOMEN AND PELVIS CT WITHOUT CONTRAST CT DOSE: 402.33 mGycm HISTORY: Nausea. Diarrhea. Recently passed stone. TECHNIQUE: Multiaxial CT images of the abdomen and pelvis were performed without contrast. A dose lowering technique was utilized adhering to the principles of ALARA. COMPARISON STUDY: Abdomen and pelvis CT 08/20/2017. FINDINGS: Mild distal bronchiectasis within the lingula, unchanged. The lung bases are clear. No pneumoperitoneum. No pneumatosis. No fractures within the visualized osseous structures. The unenhanced liver, spleen, adrenal glands, pancreas, and gallbladder are unremarkable. No retroperitoneal lymphadenopathy. There is a left circumaortic renal vein. There is 2 punctate stones seen within the left kidney. No right renal calculi. No hydronephrosis. The ureters are normal in course and caliber. The bladder is unremarkable. Suboptimal evaluation for bowel pathology due to the lack of intravenous and oral contrast. However, there is no definite bowel wall thickening or obstruction. Normal appendix. The uterus and ovaries are unremarkable. IMPRESSION: 1. Stable left-sided nephrolithiasis. No ureteral stones. No hydronephrosis. 2. No definite bowel wall thickening or obstruction. 3. Normal appendix. Electronically signed by: Connor Arboleda M.D. 08/24/2017 3:02 PM Dictated Date/Time: 08/24/2017 2:58 PM
--- NOTE | 2017-08-24 16:33 | History and Physical ---
History & Physical Date & Time of Service: Aug 24, 2017 at 16:33 . Chief Complaint: malaise, diarrhea . Primary Care Physician: Dandy Hood M.D.(MELISA) . History of Present Illness Source: patient, clinic records, hospital records 37-year-old female followed by Dr. Hood. History of urinary calculi requiring stenting in the past. History of heroin addiction, discharge from rehab recently. She has been abstinent since discharge. Seen in ED on 08/20/17 with right flank pain. Urinalysis demonstrated leukocyte esterase, WBCs, no bacteria. CT of abdomen/pelvis demonstrated 2 small calculi in left kidney without obstruction. Urine culture subsequently grew 3 types of organisms consistent with probable skin bora. 2 days prior to admission experienced malaise. This morning she had some loose stools without blood. Nauseated; no emesis. Freedom shaky and lightheaded. Experienced diaphoresis, but no fever. Mild right flank pain. Noticed some hematuria, but no dysuria. Mild nonproductive cough. Also experienced paresthesiae and cramping of hands. . Past Medical/Surgical History Chronic and Resolved Medical Problems: (1) Dysthymic disorder Status: Chronic (2) Endometriosis Status: Chronic (3) Hiatal hernia Status: Chronic (4) History of calculus of kidney Status: Chronic (5) Hypertension Status: Chronic (6) PELV PERIT ENDOMETRIOSIS Status: Chronic (7) Ureteral stone Status: Resolved Surgical Problems: (1) History of ureter stent Permanent Comment: 03/2013 Status: Chronic (2) LAP EXCISION OF LYSIS - ENDOMETRIOSIS Status: Chronic . Family History Diabetes mellitus Heart disease Social History Smoking Status: Current Every Day Smoker Alcohol Use: none Drug Use: heroin Marital Status: single Housing status: lives with family Occupational Status: unemployed Immunizations History of Influenza Vaccine: No History of Tetanus Vaccine?: Yes History of Pneumococcal: Unknown History of Hepatitis B Vaccine: Yes Multi-Drug Resistant Organisms History of MDRO: No Allergies Coded Allergies: Morphine (Unverified Allergy, Unknown, felt like throat was closing, ) Tramadol (Verified Adverse Reaction, Unknown, dizziness, confusion, limb weakness, 08/24/17) Home Medications Scheduled Lisinopril (Lisinopril), 10 MG PO DAILY Paroxetine (Paxil), 20 MG PO DAILY Quetiapine Fumarate (Seroquel), 50 MG PO HS Sulfa/Trimethoprim (Bactrim Ds 800MG/160MG), 1 TAB PO BID Scheduled PRN Cyclobenzaprine HCl (Cyclobenzaprine HCl), 10 MG PO TID PRN for Muscle Spasms Review of Systems Constitutional: + sweats, + weight loss, No fever Eyes: + problem reported (intermittent blurred vision) ENT: No nasal symptoms, No sore throat Respiratory: + cough (Mild), No shortness of breath Cardiovascular: No chest pain, No edema Abdomen: + problem reported (as noted above in HPI) Musculoskeletal: + muscle pain, No joint pain Genitourinary - Female: + problem reported (as noted above in HPI) Neurologic: + problem reported (generalized weakness, no headache) Endocrine: No excessive thirst, No excessive urination Hematologic / Lymphatic: No abnormal bleeding/bruising, No swollen lymph nodes Integumentary: No rash, No new/changing skin lesions Physical Exam Vital Signs Date Time Temp Pulse Resp B/P (MAP) Pulse Ox O2 Delivery O2 Flow Rate FiO2 08/24/17 16:03 121 22 193/145 98 Room Air 08/24/17 15:09 126 16 147/101 96 Room Air 08/24/17 13:27 119 08/24/17 13:27 124 20 180/129 08/24/17 11:32 117 20 166/111 100 Room Air 08/24/17 10:45 134 24 157/143 99 08/24/17 10:16 131 08/24/17 10:16 36.3 131 20 149/110 100 Room Air General Appearance: WD/WN, + mild distress Head: normocephalic, atraumatic Eyes: normal inspection, PERRL, EOMI, sclerae normal ENT: normal ENT inspection, hearing grossly normal, pharynx normal Neck: supple, no adenopathy, thyroid normal, trachea midline Respiratory/Chest: lungs clear, no respiratory distress Cardiovascular: regular rate, rhythm, no edema, no gallop, no JVD, no murmur Abdomen/GI: normal bowel sounds, non tender, soft, no organomegaly Extremities/Musculoskelatal: no calf tenderness, + pertinent finding (no cyanosis, no clubbing) 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/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: 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5 25-34 pg Mean Corpuscular Hemoglobin Concent 35.4 32-36 g/dl Platelet Count 428 130-400 K/uL Mean Platelet Volume 8.7 7.4-10.4 fL Neutrophils (%) (Auto) 57.8 % Lymphocytes (%) (Auto) 35.5 % Monocytes (%) (Auto) 5.7 % Eosinophils (%) (Auto) 0.5 % Basophils (%) (Auto) 0.2 % Neutrophils # (Auto) 7.27 1.4-6.5 K/uL Lymphocytes # (Auto) 4.46 1.2-3.4 K/uL Monocytes # (Auto) 0.71 0.11-0.59 K/uL Eosinophils # (Auto) 0.06 0-0.5 K/uL Basophils # (Auto) 0.02 0-0.2 K/uL RDW Standard Deviation 41.8 36.4-46.3 fL RDW Coefficient of Variation 12.9 11.5-14.5 % Immature Granulocyte % (Auto) 0.3 % Immature Granulocyte # (Auto) 0.04 0.00-0.02 K/uL Sodium Level 140 136-145 mmol/L Potassium Level 4.0 3.5-5.1 mmol/L Chloride Level 101 98-107 mmol/L Carbon Dioxide Level 20 21-32 mmol/L Anion Gap 18.0 3-11 mmol/L Blood Urea Nitrogen 19 7-18 mg/dl Creatinine 1.26 0.60-1.20 mg/dl Est Creatinine Clear Calc Drug Dose 55.0 ml/min Estimated GFR () 63.5 Estimated GFR (Non- 54.8 BUN/Creatinine Ratio 15.0 10-20 Random Glucose 120 70-99 mg/dl Calcium Level 10.8 8.5-10.1 mg/dl Total Bilirubin 0.5 0.2-1 mg/dl Direct Bilirubin < 0.1 0-0.2 mg/dl Aspartate Amino Transf (AST/SGOT) 15 15-37 U/L Alanine Aminotransferase (ALT/SGPT) 28 12-78 U/L Alkaline Phosphatase 101 45-117 U/L Troponin I < 0.015 0-0.045 ng/ml Total Protein 9.3 6.4-8.2 gm/dl Albumin 4.8 3.4-5.0 gm/dl Lipase 364 73-393 U/L Thyroid Stimulating Hormone (TSH) 1.450 0.300-4.500 uIu/ml Urine Color YELLOW Urine Appearance CLOUDY CLEAR Urine pH 7.5 4.5-7.5 Urine Specific [place] 1.024 1.000-1.030 Urine Protein NEG NEG Urine Glucose (UA) NEG NEG Urine Ketones 1+ NEG Urine Occult Blood NEG NEG Urine Nitrite NEG NEG Urine Bilirubin NEG NEG Urine Urobilinogen NEG NEG Urine Leukocyte Esterase MODERATE NEG Urine WBC (Auto) >30 0-5 /hpf Urine RBC (Auto) 0-4 0-4 /hpf Urine Hyaline Casts (Auto) 10-30 0-5 /lpf Urine Epithelial Cells (Auto) >30 0-5 /lpf Urine Bacteria (Auto) NEG NEG Urine Renal Epithelial Cells 0-5 /lpf Urine Crystals CALCIUM OXALATE NONE PRSENT Urine Mucus PRESENT NONE PRSENT Urine Test NEG NEG Venous Blood pH 7.44 7.36-7.41 Venous Blood Partial Pressure CO2 40 38.0-50.0 mmHg Venous Blood Partial Pressure O2 35 mmHg Venous Blood HCO3 26 mmol/L Venous Blood Oxygen Saturation 67.4 % Venous Blood Base Excess 2.0 mEq/L Salicylates Level < 1.7 2.8-20 mg/dl Ethyl Alcohol mg/dL < 3.0 0-3 mg/dl Microbiology Results 08/24/17 Urine Culture, Received Pending Diagnostic Radiology SINGLE VIEW CHEST FINDINGS: An AP, portable, upright chest radiograph is obtained. No prior studies are available for comparison at the time of dictation. The examination is degraded by portable technique and patient rotation. The cardiomediastinal silhouette is unremarkable. The lungs and pleural spaces are clear. No pneumothorax is seen. The bony thorax is grossly intact. IMPRESSION: No active disease in the chest. Electronically signed by: Henri Denis M.D. 08/24/2017 10:34 AM Dictated Date/Time: 08/24/2017 10:33 AM ABDOMEN AND PELVIS CT WITHOUT CONTRAST FINDINGS: Mild distal bronchiectasis within the lingula, unchanged. The lung bases are clear. No pneumoperitoneum. No pneumatosis. No fractures within the visualized osseous structures. The unenhanced liver, spleen, adrenal glands, pancreas, and gallbladder are unremarkable. No retroperitoneal lymphadenopathy. There is a left circumaortic renal vein. There is 2 punctate stones seen within the left kidney. No right renal calculi. No hydronephrosis. The ureters are normal in course and caliber. The bladder is unremarkable. Suboptimal evaluation for bowel pathology due to the lack of intravenous and oral contrast. However, there is no definite bowel wall thickening or obstruction. Normal appendix. The uterus and ovaries are unremarkable. IMPRESSION: 1. Stable left-sided nephrolithiasis. No ureteral stones. No hydronephrosis. 2. No definite bowel wall thickening or obstruction. 3. Normal appendix. Electronically signed by: Connor Arboleda M.D. 08/24/2017 3:02 PM Dictated Date/Time: 08/24/2017 2:58 PM . EKG EKG performed at 1015 reviewed and demonstrated sinus tachycardia at 130/minute , no acute ST or T-wave abnormalities. EKG performed at 1400 reviewed and demonstrated sinus tachycardia at 120/minute , no acute ST or T-wave abnormalities. . Impression Assessment and Plan MALAISE / TACHYCARDIA / REPORTED HEMATURIA / DIARRHEA Symptoms may be secondary to urinary tract infection. History of urinary calculi; CT today shows a nonobstructing stone in the left renal pelvis. UA demonstrates leukocyte esterase, WBCs, 0-4 RBCs, but many epithelial cells and no bacteria. Recently prescribed trimethoprim/sulfamethoxazole for possible UTI. Experienced loose stools this morning. Consider C. difficile colitis. Check stool PCR. History of heroin addiction with recent rehab stay. Patient states that she has been abstinent since discharge, but must consider possibility of relapse with withdrawal symptoms. DEHYDRATION IV fluids. Follow. HYPERTENSION / HYPERTENSIVE URGENCY Not taking lisinopril at home because of relatively low blood pressures. BP elevated in the ED. Resume lisinopril. IV enalapril and IV metoprolol PRN for elevated BP's. VTE PROPHYLAXIS Low risk for VTE per IMPROVE risk assessment tool. Prophylaxis none indicated. Ambulate. DISPOSITION Observation status on Med-Surg Unit. Expected discharge to home. Family Medicine follow-up with Dr. Hood. . VTE Prophylaxis Given or contraindicated: Treatment not indicated
[2017-08-24] MEDS ORDERED: ONDANSETRON INJ 2 MG/ML 2 ML VIAL IV PRN (16:45)
[2017-08-24] MEDS ORDERED: IV FLUIDS COMPLETED PRN (17:00)
[2017-08-24] MEDS ORDERED: ENALAPRILAT IV 0.625 MG in DEXTROSE 5% 25ML 25 ML IV PRN (17:15)
[2017-08-24] MEDS ORDERED: METOPROLOL TARTRATE 1 MG/ML VIAL IV PRN (17:15)
[2017-08-24 17:53] VITALS: BP 142/92; PULSE 120; TEMP 36.8; O2SAT 97
[2017-08-24 18:05] VITALS: BP 142/92; PULSE 120; TEMP 36.8; Ht 157.5 cm; Wt 70.4 kg
[2017-08-24] MEDS: ACETAMINOPHEN 325 MG TAB PO PRN (18:19)
[2017-08-24] MEDS: D5W AND 1/2NSS + 20MEQ KCL 1,000 ML IV SCH (18:19)
[2017-08-24] MEDS: LORAZEPAM 1 MG TAB PO PRN (19:40)
[2017-08-24 20:00] VITALS: O2SAT 97
[2017-08-24 23:53] VITALS: BP 147/99; PULSE 109; TEMP 36.7; O2SAT 97
[2017-08-25] VITALS (7 sets, daily range): BP systolic 119–144; BP diastolic 80–98; PULSE 102–109; TEMP 36.6–36.8; O2SAT 97–100
[2017-08-25] MEDS: D5W AND 1/2NSS + 20MEQ KCL 1,000 ML IV SCH ×2 (01:34→08:25)
[2017-08-25 06:42] LABS: HEMATOCRIT 39.4 % (37-47); HEMOGLOBIN 13.8 g/dL (12.0-16.0); MEAN CELL VOLUME 88.9 fL (80-100); MEAN CORPUSCULAR HEMOGLOBIN 31.2 pg (25-34); MEAN PLATELET VOLUME 8.3 fL (7.4-10.4); PLATELET COUNT 282 K/uL (130-400); RED CELL DISTRIBUTION WIDTH CV 12.9 % (11.5-14.5); RED CELL DISTRIBUTION WIDTH SD 42.3 fL (36.4-46.3); WHITE BLOOD COUNT 7.17 K/uL (4.8-10.8)
[2017-08-25] MEDS ORDERED: CYCLOBENZAPRINE HCL 10 MG TAB PO PRN (06:45)
[2017-08-25 06:52] LABS: CALCIUM 8.5 mg/dl (8.5-10.1); CREATININE 0.86 mg/dl (0.60-1.20)
[2017-08-25] MEDS: LISINOPRIL 10 MG TAB PO SCH (08:24)
[2017-08-25] MEDS: PAROXETINE 20 MG TAB PO SCH (08:25)
[2017-08-25] MEDS: LORAZEPAM 1 MG TAB PO PRN (10:05)
--- NOTE | 2017-08-25 10:12 | Progress Note ---
Medicine Progress Note Date & Time of Visit: Aug 25, 2017 at 10:12. Subjective Seen with RN at bedside throughout encounter She is sitting up in bed Comfortable, not in distress, seems somewhat anxious History feels slightly better compared to yesterday Still had 1-2 loose bowel movements today no blood, no abdominal pain nausea vomiting Nice cough shortness of breath headache or any other symptoms Denies other symptoms Objective Last 8 Hrs Date Time Temp Pulse Resp B/P (MAP) Pulse Ox O2 Delivery O2 Flow Rate FiO2 08/25/17 07:38 36.8 106 18 119/82 (94) 97 Room Air 08/25/17 04:00 Room Air 08/25/17 03:56 36.7 109 16 144/98 (113) 98 Room Air Physical Exam: General-ended 3, speaks in sentences, no accessory muscle use Head- atraumatic Eyes- PERRL, EOMI, anicteric ENT- oropharynx clear Neck- supple, no JVD, no adenopathy, no thyromegaly; carotids +2/2 Lungs- clear breath sounds bilaterally Heart- regular rhythm; no murmur, mild tachycardia Abdomen- normal bowel sounds, soft, nontender, no masses or hepatosplenomegaly Extremities- no pretibial edema, no calf tenderness; peripheral pulses intact Neuro- alert, oriented x 3; no gross focal motor or sensory deficits Skin- warm & dry Laboratory Results: Last 24 Hours Test 08/24/17 12:35 08/24/17 15:41 08/25/17 05:53 08/25/17 07:52 Urine Color YELLOW Urine Appearance CLOUDY Urine pH 7.5 Urine Specific [place] 1.024 Urine Protein NEG Urine Glucose (UA) NEG Urine Ketones 1+ Urine Occult Blood NEG Urine Nitrite NEG Urine Bilirubin NEG Urine Urobilinogen NEG Urine Leukocyte Esterase MODERATE Urine WBC (Auto) >30 /hpf Urine RBC (Auto) 0-4 /hpf Urine Hyaline Casts (Auto) 10-30 /lpf Urine Epithelial Cells (Auto) >30 /lpf Urine Bacteria (Auto) NEG Urine Renal Epithelial Cells /lpf Urine Crystals CALCIUM OXALATE Urine Mucus PRESENT Urine Test NEG Venous Blood pH 7.44 Venous Blood Partial Pressure CO2 40 mmHg Venous Blood Partial Pressure O2 35 mmHg Venous Blood HCO3 26 mmol/L Venous Blood Oxygen Saturation 67.4 % Venous Blood Base Excess 2.0 mEq/L Salicylates Level < 1.7 mg/dl Acetaminophen Level < 2 ug/ml Ethyl Alcohol mg/dL < 3.0 mg/dl White Blood Count 7.17 K/uL Red Blood Count 4.43 M/uL Hemoglobin 13.8 g/dL Hematocrit 39.4 % Mean Corpuscular Volume 88.9 fL Mean Corpuscular Hemoglobin 31.2 pg Mean Corpuscular Hemoglobin Concent 35.0 g/dl RDW Standard Deviation 42.3 fL RDW Coefficient of Variation 12.9 % Platelet Count 282 K/uL Mean Platelet Volume 8.3 fL Sodium Level 140 mmol/L Potassium Level 4.0 mmol/L Chloride Level 110 mmol/L Carbon Dioxide Level 23 mmol/L Anion Gap 7.0 mmol/L Blood Urea Nitrogen 10 mg/dl Creatinine 0.86 mg/dl Est Creatinine Clear Calc Drug Dose 81.5 ml/min Estimated GFR () 100.7 Estimated GFR (Non- 86.9 BUN/Creatinine Ratio 11.1 Random Glucose 96 mg/dl Calcium Level 8.5 mg/dl Urine Opiates Screen NEG Urine Methadone, Qualitative NEG Urine Barbiturates NEG Urine Phencyclidine (PCP) Level NEG Ur Amphetamine/Methamphetamine NEG MDMA (Ecstasy) Screen NEG Urine Benzodiazepines Screen NEG Urine Cocaine Metabolite NEG Urine Marijuana (THC) NEG Date/Time Source Procedure Growth Status 08/25/17 00:00 Stool C.difficile Toxin B Gene (PCR) - Final Positive for C. difficile toxin B gene Complete 08/24/17 12:35 Urine , Clean Catch Urine Culture Pending Received Assessment & Plan C. DIFFICILE COLITIS Patient presented with symptoms of malaise fever and diarrhea C. difficile stool antigen test positive Vancomycin 125 mg every 6 hours started Continue IV fluids Continue to monitor RULE OUT UTI Urine cultures pending We will DC ceftriaxone for now HISTORY OF HEROIN ADDICTION History of heroin addiction with recent rehab stay. Patient states that she has been abstinent since discharge No signs of overt withdrawal symptoms at this time will monitor HYPERTENSION / HYPERTENSIVE URGENCY Not taking lisinopril at home because of relatively low blood pressures. BP elevated in the ED. Usual lisinopril resumed Blood pressure better Monitor VTE PROPHYLAXIS Low risk for VTE per IMPROVE risk assessment tool. Prophylaxis none indicated. Ambulate. DISPOSITION To be discharged in a.m. when diarrhea and tachycardia improves Family Medicine follow-up with Dr. Hood. Current Inpatient Medications: Current Inpatient Medications Medications (Trade) Dose Ordered Sig/Maximino Route Start Time Stop Time Status Last Admin Dose Admin Acetaminophen (Tylenol Tab) 650 mg Q4H PRN PO 08/24/17 16:45 09/23/17 16:44 08/24/17 18:19 650 MG Ondansetron HCl (Zofran Inj) 4 mg Q6H PRN IV 08/24/17 16:45 09/23/17 16:44 08/24/17 18:18 4 MG Miscellaneous (Iv Fluids Completed) 1 ea PRN PRN N/A 08/24/17 17:00 08/24/18 16:59 Enalaprilat 0.625 mg/Dextrose 25.5 ml @ 100 mls/hr Q6H PRN IV 08/24/17 17:15 09/23/17 17:14 Metoprolol Tartrate (Lopressor Iv) 2.5 mg Q4 PRN IV 08/24/17 17:15 09/23/17 17:14 Lorazepam (Ativan Tab) 1 mg Q8H PRN PO 08/24/17 18:45 09/23/17 18:44 08/25/17 10:05 1 MG Cyclobenzaprine HCl (Flexeril Tab) 10 mg TID PRN PO 08/25/17 06:45 09/24/17 06:44 Lisinopril (Zestril Tab) 10 mg DAILY PO 08/25/17 09:00 09/24/17 08:59 08/25/17 08:24 10 MG Paroxetine HCl (pAXil TAB) 20 mg DAILY PO 08/25/17 09:00 09/24/17 08:59 08/25/17 08:25 20 MG Quetiapine Fumarate (seroQUEL TAB) 50 mg HS PO 08/25/17 21:00 09/24/17 20:59 Vancomycin HCl (Vancomycin Oral Soln) 125 mg Q6H PO 08/25/17 10:00 09/08/17 09:59 UNV Raspberry (Raspberry Syrup 5ml Cup) 5 ml Q6H PO 08/25/17 10:00 09/08/17 09:59 UNV Sodium Chloride 1,000 ml @ 125 mls/hr Q8H IV 08/25/17 10:00 09/24/17 09:59 UNV
[2017-08-25] MEDS: SODIUM CHLORIDE 0.9% 1000ML 1,000 ML IV SCH ×2 (11:03→18:26)
[2017-08-25] MEDS: VANCOMYCIN HCL 125 MG/2.5ML SOLN PO SCH ×4 (11:03→23:46)
[2017-08-25] MEDS: RASPBERRY SYRUP 5 ML UDP PO SCH ×4 (11:04→23:46)
[2017-08-25] MEDS: ACETAMINOPHEN 325 MG TAB PO PRN (13:03)
[2017-08-25] MEDS ORDERED: KETOROLAC TROMETHAMINE 30 MG/ML VIAL IV PRN (13:30)
[2017-08-25] MEDS ORDERED: KETOROLAC TROMETHAMINE 30 MG/ML VIAL ONE (13:58)
[2017-08-25] MEDS ORDERED: LORAZEPAM 0.5 MG TAB ONE (13:58)
[2017-08-25] MEDS ORDERED: CEFTRIAXONE SOD INJ 2,000 MG in DEXTROSE 5% 50ML 50 ML IV SCH (16:00)
[2017-08-25] MEDS: LORAZEPAM 0.5 MG TAB PO PRN (18:52)
[2017-08-25] MEDS ORDERED: QUETIAPINE FUMARATE 25 MG TAB PO SCH (21:00)
[2017-08-26] MEDS: SODIUM CHLORIDE 0.9% 1000ML 1,000 ML IV SCH ×2 (03:06→11:16)
[2017-08-26 04:00] VITALS: BP 121/81; PULSE 96; TEMP 36.8; O2SAT 98
[2017-08-26] MEDS: RASPBERRY SYRUP 5 ML UDP PO SCH ×3 (06:22→17:22)
[2017-08-26] MEDS: VANCOMYCIN HCL 125 MG/2.5ML SOLN PO SCH ×3 (06:23→17:23)
[2017-08-26] MEDS: PAROXETINE 20 MG TAB PO SCH (08:15)
[2017-08-26] MEDS: LISINOPRIL 10 MG TAB PO SCH (08:15)
[2017-08-26] MEDS: LORAZEPAM 0.5 MG TAB PO PRN ×2 (08:16→13:30)
[2017-08-26 11:17] VITALS: BP 143/99; PULSE 108; TEMP 36.9; O2SAT 98
--- NOTE | 2017-08-26 15:10 | Progress Note ---
Medicine Progress Note Date & Time of Visit: Aug 26, 2017 at 15:03. Subjective seen resting in bed, comfortable in good spirits states she feels much better overall had formed stools today, no abdominal pain ,nausea/vomiting, dizziness, weakness denies chest pain, dyspnea, palpitations ambulating fine denies other symptoms states she is ready and would like to be discharged today Objective Last 8 Hrs Date Time Temp Pulse Resp B/P (MAP) Pulse Ox O2 Delivery O2 Flow Rate FiO2 08/26/17 12:00 Room Air 08/26/17 11:17 36.9 108 16 143/99 (114) 98 Room Air 08/26/17 08:00 Room Air Physical Exam: General-ended 3, speaks in sentences, no accessory muscle use Eyes- anicteric Neck- supple, no JVD Lungs- clear breath sounds bilaterally, no rales/wheezes Heart- regular rhythm; no murmur, HR low 100s Abdomen- normal bowel sounds, soft,nondistended, nontender Extremities- no pretibial edema, no calf tendernes Neuro- alert, oriented x 3; no gross focal motor or sensory deficits Skin- warm & dry Assessment & Plan C. DIFFICILE COLITIS Patient presented with symptoms of malaise fever and diarrhea C. difficile stool antigen test positive Vancomycin 125 mg every 6 hours started given IV fluids -- patient improved overall diarrhea resolved -- continue Vancomycin 125mg po QID x 9 more days to complete 10 day therapy patient advised to increase oral fluid intake, disinfect toilet after each use, strict hand washing with soap and water HISTORY OF HEROIN ADDICTION History of heroin addiction with recent rehab stay. Patient states that she has been abstinent since discharge No signs of overt withdrawal symptoms at this time monitor as outpatient continue usual medications for mood HYPERTENSION / HYPERTENSIVE URGENCY Not taking lisinopril at home because of relatively low blood pressures. BP elevated in the ED. Usual lisinopril resumed Blood pressure improved Monitor BP as outpatient DISPOSITION discharge home ff up with PCP in 3-5 days Current Inpatient Medications: Current Inpatient Medications Medications (Trade) Dose Ordered Sig/Maximino Route Start Time Stop Time Status Last Admin Dose Admin Acetaminophen (Tylenol Tab) 650 mg Q4H PRN PO 08/24/17 16:45 09/23/17 16:44 08/25/17 13:03 650 MG Ondansetron HCl (Zofran Inj) 4 mg Q6H PRN IV 08/24/17 16:45 09/23/17 16:44 08/24/17 18:18 4 MG Miscellaneous (Iv Fluids Completed) 1 ea PRN PRN N/A 08/24/17 17:00 08/24/18 16:59 Enalaprilat 0.625 mg/Dextrose 25.5 ml @ 100 mls/hr Q6H PRN IV 08/24/17 17:15 09/23/17 17:14 Metoprolol Tartrate (Lopressor Iv) 2.5 mg Q4 PRN IV 08/24/17 17:15 09/23/17 17:14 Cyclobenzaprine HCl (Flexeril Tab) 10 mg TID PRN PO 08/25/17 06:45 09/24/17 06:44 Lisinopril (Zestril Tab) 10 mg DAILY PO 08/25/17 09:00 09/24/17 08:59 08/26/17 08:15 10 MG Paroxetine HCl (pAXil TAB) 20 mg DAILY PO 08/25/17 09:00 09/24/17 08:59 08/26/17 08:15 20 MG Quetiapine Fumarate (seroQUEL TAB) 50 mg HS PO 08/25/17 21:00 09/24/17 20:59 08/25/17 22:07 50 MG Vancomycin HCl (Vancomycin Oral Soln) 125 mg Q6 PO 08/25/17 10:30 09/08/17 10:29 08/26/17 11:14 125 MG Raspberry (Raspberry Syrup 5ml Cup) 5 ml Q6 PO 08/25/17 10:30 09/08/17 10:29 08/26/17 11:14 5 ML Sodium Chloride 1,000 ml @ 125 mls/hr Q8H IV 08/25/17 10:00 09/24/17 09:59 08/26/17 11:16 125 MLS/HR Lorazepam (Ativan Tab) 0.5 mg Q4H PRN PO 08/25/17 13:30 09/24/17 13:29 08/26/17 13:30 0.5 MG Ketorolac Tromethamine (Toradol Inj) 30 mg Q6H PRN IV 08/25/17 13:30 08/30/17 13:29
[2017-08-26 15:13] VITALS: BP 141/91; PULSE 108; TEMP 36.8; O2SAT 96
[2017-08-26] MEDS ORDERED: LISI-461 PO (15:15)
[2017-08-26] MEDS ORDERED: VANC5CAP PO (15:15)
--- NOTE | 2017-08-26 15:19 | Discharge Instructions ---
Discharge Instructions Date of Service Aug 26, 2017. Admission Reason for Admission: Tachycardia Discharge Discharge Diagnosis / Problem: C. DIFFICILE COLITIS Discharge Goals Goal(s): Diagnostic testing, Therapeutic intervention Activity Recommendations Activity Limitations: as noted below (RESUME PREVIOUS ACTVITY GRADUALLY TOLERATED) . Instructions / Follow-Up Instructions / Follow-Up PLEASE REVIEW YOUR NEW MEDICATION LIST AND FOLLOW INSTRUCTIONS CAREFULLY. CALL PRIMARY CARE PHYSICIAN OR RETURN TO ER IMMEDIATELY IF WITH RECURRENCE OF SYMPTOMS, ABDOMINAL PAIN, NAUSEA/VOMITING, FEVER/CHILLS, DIARRHEA. FOLLOW UP WITH PRIMARY CARE PHYSICIAN DR. GALLAGHER ON Thursday08/31/17 AT 11:00AM. Current Hospital Diet Patient's current hospital diet: AHA Diet (Heart Healthy) Discharge Diet Recommended Diet: AHA Diet (Heart Healthy) Pending Studies Studies pending at discharge: no Medical Emergencies . Who to Call and When: Medical Emergencies: If at any time you feel your situation is an emergency, please call 911 immediately. . Non-Emergent Contact Non-Emergency issues call your: Primary Care Provider Call Non-Emergent contact if: you have a fever, your pain is not controlled, your pain is worsening, you have any medication questions . . "Provider Documentation" section prepared by Ethan Daigle. . VTE Core Measure Inpt VTE Proph given/why not?: Treatment not indicated
[2017-08-26 15:30] VITALS: BP 143/99; PULSE 108; TEMP 36.9; O2SAT 98
--- NOTE | 2017-08-28 07:30 | Discharge Summary ---
Discharge Summary Date of Service Aug 28, 2017. Discharge Summary Admission Date: Aug 24, 2017 at 16:38 Discharge Date: Aug 26, 2017 Discharge Disposition: Home Principal Diagnosis: C. DIFFICILE COLITIS Secondary Diagnoses/Problems: Please refer to hospital course below. Procedures: SINGLE VIEW CHEST CLINICAL HISTORY: Dizziness. Anxiety. FINDINGS: An AP, portable, upright chest radiograph is obtained. No prior studies are available for comparison at the time of dictation. The examination is degraded by portable technique and patient rotation. The cardiomediastinal silhouette is unremarkable. The lungs and pleural spaces are clear. No pneumothorax is seen. The bony thorax is grossly intact. IMPRESSION: No active disease in the chest. ABDOMEN AND PELVIS CT WITHOUT CONTRAST CT DOSE: 402.33 mGycm HISTORY: Nausea. Diarrhea. Recently passed stone. TECHNIQUE: Multiaxial CT images of the abdomen and pelvis were performed without contrast. A dose lowering technique was utilized adhering to the principles of ALARA. COMPARISON STUDY: Abdomen and pelvis CT 08/20/2017. FINDINGS: Mild distal bronchiectasis within the lingula, unchanged. The lung bases are clear. No pneumoperitoneum. No pneumatosis. No fractures within the visualized osseous structures. The unenhanced liver, spleen, adrenal glands, pancreas, and gallbladder are unremarkable. No retroperitoneal lymphadenopathy. There is a left circumaortic renal vein. There is 2 punctate stones seen within the left kidney. No right renal calculi. No hydronephrosis. The ureters are normal in course and caliber. The bladder is unremarkable. Suboptimal evaluation for bowel pathology due to the lack of intravenous and oral contrast. However, there is no definite bowel wall thickening or obstruction. Normal appendix. The uterus and ovaries are unremarkable. IMPRESSION: 1. Stable left-sided nephrolithiasis. No ureteral stones. No hydronephrosis. 2. No definite bowel wall thickening or obstruction. 3. Normal appendix. Medication Reconciliation New Medications: Vancomycin Hcl (Vancomycin) 125 Mg Cap 1 CAP PO QID for 9 Days, #36 CAP 0 Refills Continued Medications: Cyclobenzaprine HCl (Cyclobenzaprine HCl) 10 Mg Tab 10 MG PO TID PRN for Muscle Spasms Lisinopril (Lisinopril) 10 Mg Tab 10 MG PO DAILY for 30 Days, #30 TAB 1 Refill (This prescription has been renewed ) Paroxetine (Paxil) 20 Mg Tab 20 MG PO DAILY, TAB Quetiapine Fumarate (Seroquel) 50 Mg Tab 50 MG PO HS Discontinued Medications: Sulfa/Trimethoprim (Bactrim Ds 800MG/160MG) Tab 1 TAB PO BID for 7 Days, #6 TAB UNTIL HS 2100 Admission Information HPI (per Admitting provider): 37-year-old female followed by Dr. Gallagher. History of urinary calculi requiring stenting in the past. History of heroin addiction, discharge from rehab recently. She has been abstinent since discharge. Seen in ED on 08/20/17 with right flank pain. Urinalysis demonstrated leukocyte esterase, WBCs, no bacteria. CT of abdomen/pelvis demonstrated 2 small calculi in left kidney without obstruction. Urine culture subsequently grew 3 types of organisms consistent with probable skin bora. 2 days prior to admission experienced malaise. This morning she had some loose stools without blood. Nauseated; no emesis. [place] shaky and lightheaded. Experienced diaphoresis, but no fever. Mild right flank pain. Noticed some hematuria, but no dysuria. Mild nonproductive cough. Also experienced paresthesiae and cramping of hands. . 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 DIFFICILE COLITIS Patient presented with symptoms of malaise fever and diarrhea C. difficile stool antigen test positive Vancomycin 125 mg every 6 hours started given IV fluids -- patient improved overall diarrhea resolved -- continue Vancomycin 125mg po QID x 9 more days to complete 10 day therapy patient advised to increase oral fluid intake, disinfect toilet after each use, strict hand washing with soap and water HISTORY OF HEROIN ADDICTION History of heroin addiction with recent rehab stay. Patient states that she has been abstinent since discharge No signs of overt withdrawal symptoms at this time monitor as outpatient continue usual medications for mood HYPERTENSION / HYPERTENSIVE URGENCY Not taking lisinopril at home because of relatively low blood pressures. BP elevated in the ED. Usual lisinopril resumed Blood pressure improved Monitor BP as outpatient DISPOSITION discharge home ff up with PCP in 3-5 days Total time spent on discharge = This includes examination of the patient, discharge planning, medication reconciliation, and communication with other providers. Discharge Instructions Discharge Instructions Date of Service Aug 26, 2017. Admission Reason for Admission: Tachycardia Discharge Discharge Diagnosis / Problem: C. DIFFICILE COLITIS Discharge Goals Goal(s): Diagnostic testing, Therapeutic intervention Activity Recommendations Activity Limitations: as noted below (RESUME PREVIOUS ACTVITY GRADUALLY TOLERATED) . Instructions / Follow-Up Instructions / Follow-Up PLEASE REVIEW YOUR NEW MEDICATION LIST AND FOLLOW INSTRUCTIONS CAREFULLY. CALL PRIMARY CARE PHYSICIAN OR RETURN TO ER IMMEDIATELY IF WITH RECURRENCE OF SYMPTOMS, ABDOMINAL PAIN, NAUSEA/VOMITING, FEVER/CHILLS, DIARRHEA. FOLLOW UP WITH PRIMARY CARE PHYSICIAN DR. GALLAGHER ON Thursday08/31/17 AT 11:00AM. Current Hospital Diet Patient's current hospital diet: AHA Diet (Heart Healthy) Discharge Diet Recommended Diet: AHA Diet (Heart Healthy) Pending Studies Studies pending at discharge: no Medical Emergencies . Who to Call and When: Medical Emergencies: If at any time you feel your situation is an emergency, please call 911 immediately. . Non-Emergent Contact Non-Emergency issues call your: Primary Care Provider Call Non-Emergent contact if: you have a fever, your pain is not controlled, your pain is worsening, you have any medication questions . . "Provider Documentation" section prepared by Ethan Daigle. . VTE Core Measure Inpt VTE Proph given/why not?: Treatment not indicated
== END 2017-08-26 18:18 | disposition home or self-care (01) ==
LOC: EDBD 10:08 → C.EDB 10:09 → C.MED 16:38 → ENRESERV 16:59
PROVIDERS: ADMIT Hospitalist; ATTEND Internal Medicine
DX: A04.72 Enterocolitis due to Clostridium difficile, not specified as recurrent (principal); R42 Dizziness and giddiness; F41.9 Anxiety disorder, unspecified; I10 Essential (primary) hypertension; Z88.6 Allergy status to analgesic agent; F17.200 Nicotine dependence, unspecified, uncomplicated; Z87.898 Personal history of other specified conditions; Z98.890 Other specified postprocedural states; Z87.442 Personal history of urinary calculi; Z83.3 Family history of diabetes mellitus; Z82.49 Family history of ischemic heart disease and other diseases of the circulatory system